=== PATIENT | female | born 1950 ===

== ENCOUNTER 2018-07-20 10:47 | Inpatient (IN) | payer MEDICARE, OTHER ==
[~2018-07-20] VITALS: Ht 157.5 cm; Wt 68.3 kg
[2018-07-20] MEDS ORDERED: LABETALOL 5MG/ML, 20ML ONE (10:54)
[2018-07-20] MEDS ORDERED: LABETALOL 5MG/ML, 20ML IVPush PRN (11:00)
[2018-07-20] MEDS ORDERED: SODIUM CHLORIDE FLUSH 10ML SYR IVF ONE (11:00)
[2018-07-20] MEDS ORDERED: ETOMIDATE 40 MG/20 ML ONE (11:13)
[2018-07-20] MEDS ORDERED: PROPOFOL 10 MG/ML, 100ML IV ONE (11:13)
[2018-07-20] MEDS ORDERED: SUCCINYLCHOLINE 20 MG/ML, 10ML ONE (11:13)
[2018-07-20] MEDS ORDERED: LORazepam 2 MG/ML, 1ML ONE (11:15)
[2018-07-20] MEDS ORDERED: LORazepam 2 MG/ML, 1ML IVPush STA (11:23)
[2018-07-20 11:28] LABS: BASOPHILS # (AUTO) 0.03 x10^3/uL (0-0.1); BASOPHILS % (AUTO) 0 % (0-1); EOSINOPHILS # (AUTO) 0.14 x10^3/uL (0-0.4); EOSINOPHILS % (AUTO) 2 % (1-7); LYMPHOCYTES # (AUTO) 1.25 x10^3/uL (1-3.4); LYMPHOCYTES % (AUTO) 15 % (22-44); MD NO; MEAN CORPUSCULAR HGB CONC 33.7 g/dL (32.4-35.8); MEAN CORPUSCULAR VOLUME 88.8 fL (80-100); MEAN PLATELET VOLUME 6.7 fL (7.4-10.4); MONOCYTES # (AUTO) 0.52 x10^3/uL (0.2-0.8); MONOCYTES % (AUTO) 6 % (2-9); NEUTROPHILS # (AUTO) 6.67 x10^3/uL (1.8-6.8); NEUTROPHILS % (AUTO) 78 % (42-75); PLATELET COUNT 266 x10^3/uL (130-400); RED BLOOD COUNT 4.65 x10^6/uL (3.82-5.3); RED CELL DISTRIBUTION WIDTH 14.4 % (9.6-15.2)
[2018-07-20 11:30] LABS: INTERNATIONAL NORMALIZED RATIO 1.11 (0.93-1.1); PROTHROMBIN TIME 11.4 Seconds (9.6-11.5)
[2018-07-20 11:33] LABS: ALANINE AMINOTRANSFERASE 14 U/L (12-78); ALBUMIN 3.4 g/dL (3.4-5.0); ANION GAP 12 mmol/L (5-15); CALCIUM 6.1 mg/dL (8.5-10.1); CHLORIDE 104 mmol/L (98-107); CREATININE 0.99 mg/dL (0.55-1.02)
[2018-07-20 11:37] LABS: ALKALINE PHOSPHATASE 93 U/L (45-117); BILIRUBIN,TOTAL 0.5 mg/dL (0.2-1.0); TOTAL PROTEIN 7.6 g/dL (6.4-8.2); TROPONIN I < 0.015 ng/mL (0.000-0.045)
[2018-07-20] MEDS ORDERED: POTASSIUM CHLORIDE 40 MEQ in SODIUM CHLORIDE 0.9% 500 ML IV ONE (12:00)
[2018-07-20] MEDS ORDERED: POTASSIUM CHLORIDE 20 MEQ TAB.ER.PRT PO ONE (12:00)
[2018-07-20] MEDS ORDERED: PLEASE ENTER ALLERGIES MC SCH (12:00)
[2018-07-20] MEDS ORDERED: LEVETIRACETAM 1,000 MG in SODIUM CHLORIDE 0.9% 100 ML IV ONE (12:30)
[2018-07-20 12:46] LABS: MICROSCOPIC INDICATED
[2018-07-20 12:55] LABS: CULTURE INDICATED? YES
[2018-07-20] MEDS ORDERED: POTASSIUM CHLORIDE 10% 40 MEQ/30 ML UDC PO ONE ×2 (13:00→15:00)
[2018-07-20] MEDS ORDERED: PHARMACY MAY ADJ FOR RENAL FX MC SCH (14:00)
[2018-07-20] MEDS ORDERED: DOCUSATE 100 MG CAPSULE PO PRN (14:00)
[2018-07-20] MEDS ORDERED: ACETAMINOPHEN 325 MG TABLET PO PRN (14:00)
[2018-07-20] MEDS ORDERED: LIDOCAINE-MPF 1%, 2ML ENDO PRN (14:00)
[2018-07-20 14:44] LABS: ANION GAP 10 mmol/L (5-15); CHLORIDE 109 mmol/L (98-107)
[2018-07-20 14:55] LABS: CALCIUM 5.7 mg/dL (8.5-10.1)
[2018-07-20] MEDS ORDERED: MAGNESIUM SULFATE 6 GM in SODIUM CHLORIDE 0.9% 150 ML IV ONE (15:00)
[2018-07-20] MEDS ORDERED: CALCIUM GLUCONATE 9.2 MEQ in SODIUM CHLORIDE 0.9% 100 ML IV ONE (15:00)
[2018-07-20] MEDS ORDERED: POTASSIUM PHOSPHATE 44 MEQ in SODIUM CHLORIDE 0.9% 500 ML IV ONE (15:00)
[2018-07-20] MEDS: ENOXAPARIN 40 MG/0.4 ML SQ SCH (15:07)
[2018-07-20] MEDS: NS + 20MEQ KCL 1,000 ML IV SCH ×2 (15:07→22:35)
[2018-07-20] MEDS: PROPOFOL 100 ML IV PRN ×2 (15:50→21:00)
[2018-07-20] MEDS ORDERED: ASPIRIN 81 MG TABLET EC PO SCH (16:00)
[2018-07-20] MEDS: hydrALAzine 20 MG/ML, 1ML IVPush PRN (18:06)
[2018-07-20] MEDS: ATORVASTATIN 80 MG TABLET PO SCH (20:21)
[2018-07-20] MEDS: MVI ADULT 10 ML, THIAMINE 200 MG, FOLIC ACID 1 MG in SODIUM CHLORIDE 0.45% 1,000 ML IV SCH (20:21)
[2018-07-20] MEDS: LEVETIRACETAM 500 MG in SODIUM CHLORIDE 0.9% 100 ML IV SCH (20:21)
[2018-07-20] MEDS: ASPIRIN 81 MG TABLET CHEW PO SCH (20:21)
[2018-07-20 20:30] VITALS: BP 140/59
[2018-07-21] MEDS: PROPOFOL 100 ML IV PRN ×4 (00:56→21:16)
[2018-07-21] MEDS: hydrALAzine 20 MG/ML, 1ML IVPush PRN ×2 (02:11→12:20)
[2018-07-21 04:41] LABS: BASOPHILS # (AUTO) 0.11 x10^3/uL (0-0.1); BASOPHILS % (AUTO) 1 % (0-1); EOSINOPHILS # (AUTO) 0.05 x10^3/uL (0-0.4); EOSINOPHILS % (AUTO) 0 % (1-7); LYMPHOCYTES # (AUTO) 1.01 x10^3/uL (1-3.4); LYMPHOCYTES % (AUTO) 8 % (22-44); MD NO; MEAN CORPUSCULAR HEMOGLOBIN 30.4 pg (27.0-34.8); MEAN CORPUSCULAR HGB CONC 34.2 g/dL (32.4-35.8); MEAN CORPUSCULAR VOLUME 88.9 fL (80-100); MEAN PLATELET VOLUME 6.6 fL (7.4-10.4); MONOCYTES # (AUTO) 0.55 x10^3/uL (0.2-0.8); MONOCYTES % (AUTO) 5 % (2-9); NEUTROPHILS # (AUTO) 10.37 x10^3/uL (1.8-6.8); NEUTROPHILS % (AUTO) 86 % (42-75); PLATELET COUNT 248 x10^3/uL (130-400); RED BLOOD COUNT 4.03 x10^6/uL (3.82-5.3); RED CELL DISTRIBUTION WIDTH 14.8 % (9.6-15.2)
[2018-07-21 04:47] LABS: ALANINE AMINOTRANSFERASE 13 U/L (12-78); ALBUMIN 2.9 g/dL (3.4-5.0); ANION GAP 9 mmol/L (5-15); CALCIUM 6.2 mg/dL (8.5-10.1); CHLORIDE 114 mmol/L (98-107)
[2018-07-21 04:57] LABS: ALKALINE PHOSPHATASE 76 U/L (45-117); BILIRUBIN,TOTAL 0.7 mg/dL (0.2-1.0); THYROID STIMULATING HORMONE 0.527 mIU/L (0.358-3.740); TOTAL PROTEIN 6.3 g/dL (6.4-8.2)
[2018-07-21] MEDS ORDERED: POTASSIUM CHLORIDE 40 MEQ in SODIUM CHLORIDE 0.9% 500 ML IV ONE (05:30)
[2018-07-21] MEDS: PANTOPRAZOLE 40 MG IV IVPush SCH (06:08)
[2018-07-21] MEDS: ASPIRIN 81 MG TABLET CHEW PO SCH (08:21)
[2018-07-21] MEDS ORDERED: POTASSIUM CHLORIDE 10% 40 MEQ/30 ML UDC PO ONE (08:30)
[2018-07-21] MEDS: LEVETIRACETAM 500 MG in SODIUM CHLORIDE 0.9% 100 ML IV SCH ×2 (09:13→21:15)
[2018-07-21] MEDS: QUETIAPINE 25MG TABLET PO SCH ×2 (10:02→16:51)
[2018-07-21 13:17] LABS: AMPHETAMINE SCREEN, URINE Negative (Negative); BARBITURATE SCREEN, URINE Negative (Negative); BENZODIAZEPINE SCREEN, URINE Negative (Negative); CANNABINOID SCREEN, URINE Negative (Negative); COCAINE SCREEN, URINE Negative (Negative); METHADONE SCREEN, URINE Negative (Negative); OPIATE SCREEN, URINE Negative (Negative)
[2018-07-21] MEDS ORDERED: GADOBUTROL 7.5 MMOL/7.5 ML VIAL ONE (14:00)
[2018-07-21] MEDS: ENOXAPARIN 40 MG/0.4 ML SQ SCH (14:14)
[2018-07-21] MEDS: NS + 20MEQ KCL 1,000 ML IV SCH (18:00)
[2018-07-21] MEDS: LABETALOL 5MG/ML, 20ML IVPush PRN (18:18)
[2018-07-21] MEDS ORDERED: CEFTRIAXONE 2 GM in SODIUM CHLORIDE 0.9% 50 ML IV SCH (19:30)
[2018-07-21] MEDS: CEFTRIAXONE PMX 2GM/50ML 50 ML IV SCH (20:02)
[2018-07-21] MEDS: ATORVASTATIN 80 MG TABLET PO SCH (21:15)
[2018-07-21] MEDS: MVI ADULT 10 ML, THIAMINE 200 MG, FOLIC ACID 1 MG in SODIUM CHLORIDE 0.45% 1,000 ML IV SCH (22:43)
[2018-07-22] MEDS: QUETIAPINE 25MG TABLET PO SCH (01:13)
[2018-07-22] MEDS: NS + 20MEQ KCL 1,000 ML IV SCH (03:40)
[2018-07-22 04:39] LABS: ALBUMIN 2.5 g/dL (3.4-5.0); ANION GAP 8 mmol/L (5-15); CALCIUM 6.5 mg/dL (8.5-10.1); CHLORIDE 114 mmol/L (98-107)
[2018-07-22 04:40] LABS: BASOPHILS # (AUTO) 0.18 x10^3/uL (0-0.1); BASOPHILS % (AUTO) 2 % (0-1); EOSINOPHILS # (AUTO) 0.19 x10^3/uL (0-0.4); EOSINOPHILS % (AUTO) 2 % (1-7); LYMPHOCYTES # (AUTO) 1.33 x10^3/uL (1-3.4); LYMPHOCYTES % (AUTO) 14 % (22-44); MD NO; MEAN CORPUSCULAR HEMOGLOBIN 30.6 pg (27.0-34.8); MEAN CORPUSCULAR HGB CONC 33.9 g/dL (32.4-35.8); MEAN CORPUSCULAR VOLUME 90.2 fL (80-100); MEAN PLATELET VOLUME 7.1 fL (7.4-10.4); MONOCYTES # (AUTO) 0.63 x10^3/uL (0.2-0.8); MONOCYTES % (AUTO) 7 % (2-9); NEUTROPHILS # (AUTO) 7.25 x10^3/uL (1.8-6.8); NEUTROPHILS % (AUTO) 76 % (42-75); PLATELET COUNT 195 x10^3/uL (130-400); RED CELL DISTRIBUTION WIDTH 14.9 % (9.6-15.2)
[2018-07-22 04:43] LABS: ALANINE AMINOTRANSFERASE 12 U/L (12-78); ALKALINE PHOSPHATASE 65 U/L (45-117); BILIRUBIN,TOTAL 0.6 mg/dL (0.2-1.0); CREATININE 0.58 mg/dL (0.55-1.02)
[2018-07-22] MEDS: PANTOPRAZOLE 40 MG IV IVPush SCH (07:35)
[2018-07-22] MEDS: LABETALOL 5MG/ML, 20ML IVPush PRN ×2 (07:36→21:19)
[2018-07-22] MEDS: LEVETIRACETAM 500 MG in SODIUM CHLORIDE 0.9% 100 ML IV SCH ×2 (09:02→20:17)
[2018-07-22 09:59] LABS: CLOSTRIDIUM DIFFICILE ANTIGEN NEGATIVE; CLOSTRIDIUM DIFFICILE TOXIN NEGATIVE (Negative)
[2018-07-22] MEDS ORDERED: CALCIUM GLUCONATE 4.6 MEQ in SODIUM CHLORIDE 0.9% 50 ML IV ONE (10:30)
[2018-07-22] MEDS ORDERED: POTASSIUM PHOSPHATE 44 MEQ in SODIUM CHLORIDE 0.9% 500 ML IV ONE (11:00)
[2018-07-22] MEDS: ASPIRIN 81 MG TABLET CHEW PO SCH (13:50)
[2018-07-22] MEDS: ENOXAPARIN 40 MG/0.4 ML SQ SCH (13:52)
[2018-07-22] MEDS: CALCIUM CARBONATE 500 MG TAB.CHEW PO SCH ×2 (14:06→21:18)
[2018-07-22] MEDS: ENALAPRILAT 1.25 MG/ML, 2ML IVPush PRN (16:02)
[2018-07-22] MEDS ORDERED: ATOR40TA78 PO (16:17)
[2018-07-22] MEDS ORDERED: ESCI20TA PO (17:03)
[2018-07-22] MEDS ORDERED: CLOP75TA PO (17:03)
[2018-07-22] MEDS ORDERED: LISI-167 PO (17:03)
[2018-07-22] MEDS ORDERED: ASPI-621 PO (17:03)
[2018-07-22] MEDS ORDERED: SPIR25TA5 PO (17:03)
[2018-07-22] MEDS: CEFTRIAXONE PMX 2GM/50ML 50 ML IV SCH (20:11)
[2018-07-22] MEDS: hydrALAzine 20 MG/ML, 1ML IVPush PRN (20:36)
[2018-07-22] MEDS: ALBUTEROL/IPRATROPIUM 2.5MG/0.5MG, 3 ML NPPB SCH (20:39)
[2018-07-22] MEDS ORDERED: LORazepam 2 MG/ML, 1ML ONE (21:16)
[2018-07-22] MEDS: ATORVASTATIN 80 MG TABLET PO SCH (21:18)
[2018-07-22] MEDS ORDERED: LORazepam 2 MG/ML, 1ML IVPush PRN (21:30)
[2018-07-22] MEDS ORDERED: SODIUM CHLORIDE 0.9%, 500ML IVBOLUS ONE (21:30)
[2018-07-23] MEDS: LABETALOL 5MG/ML, 20ML IVPush PRN (01:06)
[2018-07-23] MEDS: hydrALAzine 20 MG/ML, 1ML IVPush PRN (02:19)
[2018-07-23] MEDS: ENALAPRILAT 1.25 MG/ML, 2ML IVPush PRN (02:27)
[2018-07-23] MEDS: ALBUTEROL/IPRATROPIUM 2.5MG/0.5MG, 3 ML NPPB SCH ×5 (04:00→19:31)
[2018-07-23 04:21] LABS: BASOPHILS # (AUTO) 0.02 x10^3/uL (0-0.1); BASOPHILS % (AUTO) 0 % (0-1); EOSINOPHILS # (AUTO) 0.06 x10^3/uL (0-0.4); EOSINOPHILS % (AUTO) 1 % (1-7); LYMPHOCYTES # (AUTO) 0.71 x10^3/uL (1-3.4); LYMPHOCYTES % (AUTO) 8 % (22-44); MD NO; MEAN CORPUSCULAR HEMOGLOBIN 30.2 pg (27.0-34.8); MEAN CORPUSCULAR HGB CONC 33.1 g/dL (32.4-35.8); MEAN PLATELET VOLUME 6.6 fL (7.4-10.4); MONOCYTES # (AUTO) 0.59 x10^3/uL (0.2-0.8); MONOCYTES % (AUTO) 7 % (2-9); NEUTROPHILS # (AUTO) 7.08 x10^3/uL (1.8-6.8); NEUTROPHILS % (AUTO) 84 % (42-75); PLATELET COUNT 209 x10^3/uL (130-400); RED BLOOD COUNT 3.66 x10^6/uL (3.82-5.3); RED CELL DISTRIBUTION WIDTH 14.9 % (9.6-15.2)
[2018-07-23 04:32] LABS: ANION GAP 11 mmol/L (5-15); CALCIUM 7.4 mg/dL (8.5-10.1); CHLORIDE 116 mmol/L (98-107); CREATININE 0.64 mg/dL (0.55-1.02)
[2018-07-23] MEDS ORDERED: MAGNESIUM SULFATE PMX 2GM/50ML 50 ML IV ONE ×2 (05:00→08:30)
[2018-07-23] MEDS ORDERED: FUROSEMIDE 20 MG/2 ML IV ONE (08:30)
[2018-07-23] MEDS ORDERED: ERGOCALCIFEROL 50,000 UNIT CAPSULE PO SCH (08:30)
[2018-07-23] MEDS: ASPIRIN 81 MG TABLET CHEW PO SCH (09:00)
[2018-07-23] MEDS: CLOPIDOGREL 75 MG TABLET PO SCH (09:00)
[2018-07-23] MEDS: CALCIUM CARBONATE 500 MG TAB.CHEW PO SCH ×2 (09:00→20:08)
[2018-07-23] MEDS: CITALOPRAM 20 MG TABLET PO SCH (09:00)
[2018-07-23] MEDS: LISINOPRIL 10 MG TABLET PO SCH (09:01)
[2018-07-23] MEDS: ENOXAPARIN 40 MG/0.4 ML SQ SCH (09:01)
[2018-07-23] MEDS: PANTOPRAZOLE 40 MG IV IVPush SCH (09:18)
[2018-07-23] MEDS: SPIRONOLACTONE 25 MG TABLET PO SCH (09:18)
[2018-07-23] MEDS: LEVETIRACETAM 500 MG in SODIUM CHLORIDE 0.9% 100 ML IV SCH ×2 (10:10→21:56)
[2018-07-23] MEDS ORDERED: LOPERAMIDE 2 MG CAPSULE ONE (13:51)
[2018-07-23] MEDS ORDERED: LOPERAMIDE 2 MG CAPSULE PO ONE (14:30)
[2018-07-23 17:45] VITALS: BP 127/69
[2018-07-23 19:24] VITALS: BP 174/71
[2018-07-23] MEDS: ATORVASTATIN 40 MG TABLET PO SCH (20:08)
[2018-07-23] MEDS: CEFTRIAXONE PMX 2GM/50ML 50 ML IV SCH (20:08)
[2018-07-23 23:17] VITALS: BP 142/69
[2018-07-24 01:51] VITALS: BP 149/68
[2018-07-24 05:35] LABS: ANION GAP 9 mmol/L (5-15); CALCIUM 8.2 mg/dL (8.5-10.1); CHLORIDE 114 mmol/L (98-107); CREATININE 0.69 mg/dL (0.55-1.02)
[2018-07-24 05:36] LABS: BASOPHILS # (AUTO) 0.04 x10^3/uL (0-0.1); BASOPHILS % (AUTO) 1 % (0-1); EOSINOPHILS # (AUTO) 0.29 x10^3/uL (0-0.4); EOSINOPHILS % (AUTO) 4 % (1-7); LYMPHOCYTES # (AUTO) 0.95 x10^3/uL (1-3.4); LYMPHOCYTES % (AUTO) 13 % (22-44); MD NO; MEAN CORPUSCULAR HEMOGLOBIN 29.6 pg (27.0-34.8); MEAN CORPUSCULAR HGB CONC 32.9 g/dL (32.4-35.8); MEAN CORPUSCULAR VOLUME 89.8 fL (80-100); MEAN PLATELET VOLUME 7.1 fL (7.4-10.4); MONOCYTES # (AUTO) 0.57 x10^3/uL (0.2-0.8); MONOCYTES % (AUTO) 8 % (2-9); NEUTROPHILS # (AUTO) 5.38 x10^3/uL (1.8-6.8); NEUTROPHILS % (AUTO) 74 % (42-75); PLATELET COUNT 242 x10^3/uL (130-400); RED BLOOD COUNT 3.44 x10^6/uL (3.82-5.3); RED CELL DISTRIBUTION WIDTH 14.9 % (9.6-15.2)
[2018-07-24] MEDS: ALBUTEROL/IPRATROPIUM 2.5MG/0.5MG, 3 ML NPPB SCH ×4 (06:52→20:15)
[2018-07-24 07:25] VITALS: BP 164/73
[2018-07-24] MEDS: CLOPIDOGREL 75 MG TABLET PO SCH (09:22)
[2018-07-24] MEDS: SPIRONOLACTONE 25 MG TABLET PO SCH (09:22)
[2018-07-24] MEDS: LISINOPRIL 10 MG TABLET PO SCH (09:22)
[2018-07-24] MEDS: ASPIRIN 81 MG TABLET CHEW PO SCH (09:22)
[2018-07-24] MEDS: CALCIUM CARBONATE 500 MG TAB.CHEW PO SCH ×2 (09:22→20:55)
[2018-07-24] MEDS: CITALOPRAM 20 MG TABLET PO SCH (09:22)
[2018-07-24] MEDS: PANTOPRAZOLE 40 MG IV IVPush SCH (09:22)
[2018-07-24] MEDS: LEVETIRACETAM 500 MG in SODIUM CHLORIDE 0.9% 100 ML IV SCH (09:23)
[2018-07-24] MEDS ORDERED: POTASSIUM PHOSPHATE 44 MEQ in SODIUM CHLORIDE 0.9% 500 ML IV ONE (13:00)
[2018-07-24] MEDS ORDERED: ERGO500017 PO (13:07)
[2018-07-24] MEDS ORDERED: CEFD300C37 PO (13:07)
[2018-07-24] MEDS ORDERED: LEVE500T53 PO (13:07)
[2018-07-24] MEDS: CEFDINIR 300 MG CAPSULE PO SCH ×2 (14:09→20:55)
[2018-07-24] MEDS: ENOXAPARIN 40 MG/0.4 ML SQ SCH (14:14)
[2018-07-24 15:53] VITALS: BP 165/87
[2018-07-24] MEDS: hydrALAzine 20 MG/ML, 1ML IVPush PRN (17:17)
[2018-07-24 17:19] VITALS: BP 173/74
[2018-07-24 17:44] VITALS: BP 140/62
[2018-07-24 19:36] VITALS: BP 157/67
[2018-07-24 20:27] LABS: TROPONIN I 0.058 ng/mL (0.000-0.045)
[2018-07-24] MEDS: LEVETIRACETAM 500 MG TABLET PO SCH (20:55)
[2018-07-24] MEDS: ATORVASTATIN 40 MG TABLET PO SCH (20:55)
[2018-07-24] MEDS ORDERED: HEPARIN 25,000 UNITS/500ML PMX 500 ML IV PRN (21:00)
[2018-07-24] MEDS ORDERED: HEPARIN 5,000 UNITS/ML, 1ML IV ONE (21:00)
[2018-07-24] MEDS ORDERED: HEPARIN 5,000 UNITS/ML, 1ML IV PRN (21:00)
[2018-07-24] MEDS ORDERED: ASPIRIN 325 MG TABLET PO ONE (23:00)
[2018-07-24] MEDS ORDERED: NITROGLYCERIN 0.4 MG BOTTLE (25 TABS) SL PRN (23:00)
[2018-07-25] MEDS ORDERED: OMNIPAQUE 350 MG/ML, 100ML BOTTLE ONE (00:31)
[2018-07-25 00:46] VITALS: BP 160/63
[2018-07-25] MEDS: LISINOPRIL 20 MG TABLET PO SCH ×2 (02:15→08:52)
[2018-07-25 02:29] LABS: TROPONIN I 0.082 ng/mL (0.000-0.045)
[2018-07-25 05:27] VITALS: BP 150/66
[2018-07-25] MEDS: CARVEDILOL 6.25 MG TABLET PO SCH ×2 (05:29→17:49)
[2018-07-25 07:13] VITALS: BP 130/73
[2018-07-25] MEDS: ALBUTEROL/IPRATROPIUM 2.5MG/0.5MG, 3 ML NPPB SCH ×4 (07:33→19:29)
[2018-07-25 08:03] LABS: TROPONIN I 0.066 ng/mL (0.000-0.045)
[2018-07-25] MEDS: LEVETIRACETAM 500 MG TABLET PO SCH ×2 (08:51→20:59)
[2018-07-25] MEDS: SPIRONOLACTONE 25 MG TABLET PO SCH (08:51)
[2018-07-25] MEDS: CEFDINIR 300 MG CAPSULE PO SCH ×2 (08:51→20:59)
[2018-07-25] MEDS: CITALOPRAM 20 MG TABLET PO SCH (08:51)
[2018-07-25] MEDS: CALCIUM CARBONATE 500 MG TAB.CHEW PO SCH ×2 (08:51→20:59)
[2018-07-25] MEDS: CLOPIDOGREL 75 MG TABLET PO SCH (08:51)
[2018-07-25] MEDS: ASPIRIN 81 MG TABLET CHEW PO SCH (08:52)
[2018-07-25] MEDS: PANTOPRAZOLE 40 MG IV IVPush SCH (08:53)
[2018-07-25 09:22] LABS: BASOPHILS # (AUTO) 0.04 x10^3/uL (0-0.1); BASOPHILS % (AUTO) 1 % (0-1); EOSINOPHILS # (AUTO) 0.29 x10^3/uL (0-0.4); EOSINOPHILS % (AUTO) 6 % (1-7); LYMPHOCYTES # (AUTO) 1.34 x10^3/uL (1-3.4); LYMPHOCYTES % (AUTO) 26 % (22-44); MD NO; MEAN CORPUSCULAR HEMOGLOBIN 29.8 pg (27.0-34.8); MEAN CORPUSCULAR HGB CONC 33.5 g/dL (32.4-35.8); MEAN CORPUSCULAR VOLUME 89.1 fL (80-100); MONOCYTES # (AUTO) 0.43 x10^3/uL (0.2-0.8); MONOCYTES % (AUTO) 8 % (2-9); NEUTROPHILS # (AUTO) 2.99 x10^3/uL (1.8-6.8); NEUTROPHILS % (AUTO) 59 % (42-75); PLATELET COUNT 243 x10^3/uL (130-400); RED BLOOD COUNT 3.27 x10^6/uL (3.82-5.3); RED CELL DISTRIBUTION WIDTH 14.7 % (9.6-15.2)
[2018-07-25 09:26] LABS: ALANINE AMINOTRANSFERASE 22 U/L (12-78); ALBUMIN 2.8 g/dL (3.4-5.0); ANION GAP 4 mmol/L (5-15); CALCIUM 8.4 mg/dL (8.5-10.1); CHLORIDE 112 mmol/L (98-107); CREATININE 0.68 mg/dL (0.55-1.02)
[2018-07-25 09:28] LABS: ALKALINE PHOSPHATASE 66 U/L (45-117); BILIRUBIN,TOTAL 0.5 mg/dL (0.2-1.0); TOTAL PROTEIN 6.5 g/dL (6.4-8.2)
[2018-07-25] MEDS ORDERED: POTASSIUM CHLORIDE 20 MEQ TAB.ER.PRT PO ONE ×2 (12:00→16:00)
[2018-07-25] MEDS ORDERED: MAGNESIUM SULFATE PMX 2GM/50ML 50 ML IV ONE (12:00)
[2018-07-25 14:49] VITALS: BP 150/71
[2018-07-25 20:29] VITALS: BP 156/83
[2018-07-25] MEDS: ATORVASTATIN 40 MG TABLET PO SCH (20:59)
[2018-07-26 01:30] VITALS: BP 156/69
== END 2018-07-26 01:58 | disposition left against medical advice (07) | DRG 208 ==
LOC: ED 13:19 → CCU 13:23 → ED 13:42 → 4EST 07-23 17:40
PROVIDERS: ADMIT Hospitalist; ATTEND Hospitalist
PROC: 5A1945Z Respiratory Ventilation, 24-96 Consecutive Hours (ICD-10-PCS; principal; 2018-07-20)
PROC: 0BH17EZ Insertion of Endotracheal Airway into Trachea, Via Natural or Artificial Opening (ICD-10-PCS; 2018-07-20)
PROC: 0T9B70Z Drainage of Bladder with Drainage Device, Via Natural or Artificial Opening (ICD-10-PCS; 2018-07-20)
PROC: 0D9670Z Drainage of Stomach with Drainage Device, Via Natural or Artificial Opening (ICD-10-PCS; 2018-07-21)
DX: J96.20 Acute and chronic respiratory failure, unspecified whether with hypoxia or hypercapnia (principal); Z99.11 Dependence on respirator [ventilator] status; E87.0 Hyperosmolality and hypernatremia; G93.49 Other encephalopathy; G40.401 Other generalized epilepsy and epileptic syndromes, not intractable, with status epilepticus; E55.9 Vitamin D deficiency, unspecified; E87.6 Hypokalemia; F17.200 Nicotine dependence, unspecified, uncomplicated; Z53.21 Procedure and treatment not carried out due to patient leaving prior to being seen by health care provider; H51.8 Other specified disorders of binocular movement; I11.9 Hypertensive heart disease without heart failure; J44.9 Chronic obstructive pulmonary disease, unspecified; Z79.02 Long term (current) use of antithrombotics/antiplatelets; Z79.82 Long term (current) use of aspirin; Z86.73 Personal history of transient ischemic attack (TIA), and cerebral infarction without residual deficits; Z99.81 Dependence on supplemental oxygen
CPT/HCPCS: 36415; 36600; 70450; 70544; 70548; 70553; 71045; 71275; 80048; 80053; 80307; 81001; 82140; 82306; 82330; 82803; 82962; 83690; 83735; 84100; 84132; 84443; 84478; 84484; 85025; 85379; 85520; 85610; 85730; 87040; 87070; 87077; 87081; 87086; 87186; 87205; 87324; 93005; 94002; 94003; 94150; 94640; 95819; A9585; G0378; J0610; J0696; J1644; J1650; J1953; J2704; J3411; J3475; J3480; J7620; Q9967; C9113; J0330; J0360; J1940; J2060; J7040